=== PATIENT | female | born 1960 | race Two or more races ===

== ENCOUNTER 2023-05-20 17:27 | Emergency (ER) | payer OTHER ==
[~2023-05-20] VITALS: Ht 152.4 cm; Wt 68.0 kg
[2023-05-20] MEDS ORDERED: LOSARTAN POTASS50 MG (17:49)
[2023-05-20] MEDS ORDERED: GLUMETZA1000 MG (17:50)
[2023-05-20] MEDS ORDERED: 0.9 % SODIUM CHLORIDE 1,000 ML IV SCH (18:30)
[2023-05-20] MEDS ORDERED: KETOROLAC TROMETHAMINE 30 MG VIAL IV ONE (18:30)
[2023-05-20] MEDS ORDERED: FAMOTIDINE/PF 20 MG in 0.9 % SODIUM CHLORIDE 8 ML IV PUSH STA (18:31)
[2023-05-20] MEDS ORDERED: ONDANSETRON HCL 2 MG/ML VIAL IV ONE (18:45)
[2023-05-20 19:10] LABS: HEMATOCRIT 36.9 % (36.0-45.00); HEMOGLOBIN 12.2 g/dL (12.0-15.00); MEAN CORPUSCULAR HEMOGLOBIN 29.5 pg (27.00-32.0); MEAN CORPUSCULAR HGB CONC 33.2 g/dl (32.0-36.0); PLATELET COUNT 193 K/uL (150-450); RED BLOOD COUNT 4.14 M/uL (4.00-6.00); RED CELL DISTRIBUTION WIDTH 14.1 % (11.5-14.5)
[2023-05-20 19:27] LABS: URINE APPEARANCE Cloudy; URINE BILIRRUBIN Negative (NEGATIVE); URINE BLOOD NHT; URINE COLOR Yellow; URINE GLUCOSE Negative (NEGATIVE); URINE LEUKOCYTE Moderate; URINE NITRATE Positive; URINE PROTEIN Negative (NEGATIVE)
[2023-05-20 19:28] LABS: URINE EPITHELIAL CELLS 12.8 uL (0.0-38.8); URINE RBC 14.6 uL (0.0-20.8); URINE WBC 1174.8 uL (0.0-23.2)
[2023-05-20 19:46] LABS: ALBUMIN 3.6 gm/dL (3.4-5.0); BILIRUBIN TOTAL 0.48 mg/dL (0.3-1.2); BILIRUBIN,CONJUGATED 0.14 mg/dL (0.0-0.2); BILIRUBIN,UNCONJUGATED 0.34 mg/dL (0.0-0.6); CALCIUM 9.8 mg/dL (8.5-10.1); CREATININE SERUM 0.73 mg/dL (0.55-1.02); GFR 80.78; GLOBULINA 4.2 G/DL (2.4-3.5); POTASSIUM 4.08 mEq/L (3.5-5.1); TOTAL PROTEIN 7.8 gm/dL (6.4-8.2)
[2023-05-20 20:02] LABS: URINE BACTERIA > 9821.5 uL (0.0-1933)
[2023-05-20] MEDS ORDERED: CEFTRIAXONE SODIUM 2,000 MG VIAL IV ONE (21:30)
[2023-05-20] MEDS ORDERED: BACTRIM DS TAB1 EACH PO (21:55)
== END 2023-05-20 22:06 | disposition home or self-care (01) ==
LOC: ER 17:27
PROVIDERS: General Practice
DX: N39.0 Urinary tract infection, site not specified (principal); R10.84 Generalized abdominal pain; E11.9 Type 2 diabetes mellitus without complications; I10 Essential (primary) hypertension; Z79.84 Long term (current) use of oral hypoglycemic drugs; N20.0 Calculus of kidney